=== PATIENT | female | born 2000 | race Caucasian/White ===

== ENCOUNTER 2023-12-06 17:03 | Emergency (ER) | payer SELFPAY ==
--- NOTE | 2023-12-06 17:12 | ED.GENADULT ---
HPI - General Adult General Chief complaint: Skin/Abscess/Foreign Body Stated complaint: white and red spots on tongue Time Seen by Provider: 12/06/23 17:12 Source: patient Mode of arrival: ambulatory Limitations: no limitations History of Present Illness HPI narrative: 23-year-old female patient presents to the [facility] with complaints of spots on her tongue. Patient states she noticed some red spots to her tongue and some abnormal texture red spots noted to the back of the throat that she noted yesterday. Denies any fevers, body aches or chills. Denies any sick symptoms. Denies any recent trauma to the mouth such as a recent burn of hot food. Denies any rash today hands or feet. Patient states she does not work around children. Patient denies any pain to the areas. Related Data Home Medications Medication Instructions Recorded Confirmed No Home Medications 12/06/23 12/06/23 Allergies Allergy/AdvReac Type Severity Reaction Status Date / Time No Known Allergies Allergy Verified 12/06/23 17:21 Review of Systems Review of Systems: CONSTITUTIONAL: Denies fever, chills, or sweats. EYES: Denies visual changes, redness, or discharge. ENT: Denies rhinorrhea, congestion, sore throat, or otalgia. Positive red bumps on tongue and back to the throat x1 day CARDIOVASCULAR: Denies chest pain, palpitations, or edema. RESPIRATORY: Denies cough or dyspnea. GASTROINTESTINAL: Denies abdominal pain, nausea, vomiting, or diarrhea. GENITOURINARY: Denies dysuria or hematuria. SKIN: Denies rash or itching. MUSCULOSKELETAL: Denies back pain, joint pain, or myalgia. NEUROLOGIC: Denies headache, numbness, or weakness. PSYCHIATRIC: Denies anxiety or depression. PMFSH Comments At the time of my signature I agree with nursing past medical history, surgical, social, and family history. There is no relevant family history pertinent to the presenting complaint. Exam Narrative: GENERAL: Well-appearing, well-nourished, and in no acute distress. HEAD: Normocephalic, atraumatic. EYES: PERRLA and EOMI. ENT: Nares clear, no rhinorrhea or epistaxis. Mucous membranes moist. patient has some bright red raised bumps noted toward the back of the tongue with a surrounding white plaque that is easily able to be scraped off. There is also a white plaque based and small red papular areas noted to the back of the throat. No tonsillar enlargement, no exudates or lesions present to the tonsils. NECK: Supple. No lymphadenopathy CHEST: Clear to auscultation. No respiratory distress. HEART: Regular rate and rhythm. No murmur heard. Normal peripheral pulses. ABDOMEN: Soft, nontender, nondistended, normal active bowel sounds. EXTREMITIES: Normal range of motion. No edema. SKIN: Warm, dry, no rash. NEURO: No focal deficits. Alert and oriented x3. Course Course Level of Care: Express Care Visit Vital Signs Vital signs: Vital Signs Temperature 36.4 C 12/06/23 17:13 Pulse Rate 75 12/06/23 17:13 Respiratory Rate 16 12/06/23 17:13 Blood Pressure 114/69 12/06/23 17:13 Pulse Oximetry 100 12/06/23 17:13 Oxygen Delivery Room Air 12/06/23 17:13 Temperature 36.4 C 12/06/23 17:13 Pulse Rate 75 12/06/23 17:13 Respiratory Rate 16 12/06/23 17:13 Blood Pressure 114/69 12/06/23 17:13 Pulse Oximetry 100 12/06/23 17:13 Oxygen Delivery Room Air 12/06/23 17:13 Vital signs reviewed Medical Decision Making MDM Narrative Medical decision making narrative: discussed with patient that the strep test today was negative. We will send to lab for culture but I am not quite sure what the symptoms are especially since she is not having pain the white plaque is easily removed I think that this indicates is not necessarily a fungal infection and she is not having any sick symptoms. Discussed with patient to continue to keep an eye on it but I would highly recommend that she follow-up with her primary doctor for further
[2023-12-06 17:13] VITALS: BP 114/69; PULSE 75; RESP 16; TEMP 36.4; O2SAT 100
[2023-12-06 17:59] LABS: EDSTREPNEGPOS1 Negative (Negative)
== END 2023-12-06 18:03 | disposition home or self-care (01) ==
PROVIDERS: Emergency Provider Nurse Practitioner Family
DX: K14.9 Disease of tongue, unspecified (principal); Z86.16 Personal history of COVID-19
CPT/HCPCS: 87081; 87880; 99213; G0463